=== PATIENT | female | born 1970 | race Hispanic/Latino ===

== ENCOUNTER 2020-12-04 06:15 | Day surgery (SDC) | payer OTHER ==
[2020-12-04] MEDS ORDERED: Ringers Lactate 1,000 ML IV ONE (07:02)
[2020-12-04] MEDS ORDERED: EPINEPHRINE/PF 1 MG/ML AMP ONE (07:39)
[2020-12-04] MEDS ORDERED: LIDOCAINE 1% MPF 5 ML VIAL ONE (07:42)
[2020-12-04] MEDS ORDERED: propofoL 200 MG/20 ML VIAL IV ONE ×2 (07:42→07:57)
--- NOTE | 2020-12-04 07:50 | ENDO RPT ---
[address], [address] EGD PROCEDURE REPORT EXAM DATE: 12/04/2020 PATIENT NAME: Chen Otero MR#: [id number] BIRTHDATE: 1970 ATTENDING: Rui Cruz DR STATUS: outpatient [employer]ILY TE[employer]ER: Neha VAZQUEZ and Yoon Carson RN INDICATIONS: The patient is a 50 yr old Female here for an EGD due to mid epigastric abdominal pain PROCEDURE PERFORMED: EGD with biopsy for H. pylori MEDICATIONS: Per Anesthesia. TOPICAL ANESTHETIC: none CONSENT: The patient understands the risks and benefits of the procedure and understands that these risks include, but are not limited to: sedation, allergic reaction, infection, perforation and/or bleeding. Alternative means of evaluation and treatment include, among others: physical exam, x-rays, and/or surgical intervention. The patient elects to proceed with this endoscopic procedure. DESCRIPTION OF PROCEDURE: During intra-op preparation period all mechanical medical equipment was checked for proper function. Hand hygiene and appropriate measures for infection prevention was taken. Procedure, possible complications, and alternatives including but not limited to the possibility of bleeding, perforation, tear, infection, sepsis, need for surgery, need for blood transfusion, and anesthesia related complications were explained to the patient. After the risks, benefits and alternatives of the procedure were thoroughly explained, Informed consent was verified, confirmed and timeout was successfully executed by the treatment team. The patient was placed in the left lateral position. The patient was anesthetized with topical anesthesia. Through the anesthetized oropharyngeal area, the scope was passed without any difficulty. The EG-[id number] ([id number]) endoscope was introduced through the mouth and advanced to the second portion of the duodenum. Retroflexed views revealed no abnormalities. The gastroscope was then slowly withdrawn and removed. Multiple erosions were found in the body and the antrum of the stomach. A biopsy for H. pylori was taken. Moderate gastritis was found in the body and the antrum of the stomach. A biopsy for H. pylori was taken. The esophagus and gastroesophageal junction were completely normal in appearance. Normal GE junction was noted. With standard forceps, a biopsy was obtained and sent to pathology. ADVERSE EVENTS: There were no complications. IMPRESSIONS: 1. Multiple erosions were found in the body and the antrum of the stomach 2. Moderate gastritis was found in the body and the antrum of the stomach 3. Normal duodenum RECOMMENDATIONS: 1. acid suppression therapy 2. await biopsy results 3. avoid NSAIDS 4. follow-up: office 2 week(s) 5. follow-up of helicobacter pylori status, treat if indicated REPEAT EXAM: Rui Cruz DR eSigned: Rui Cruz DR 12/04/2020 7:49 AM cc: CPT CODES: ICD9 CODES: PATIENT NAME: Chen Otero MR#: [id number]
[2020-12-04 10:23] VITALS: BP 121/60; TEMP 97; O2SAT 100
== END 2020-12-04 08:38 | disposition home or self-care (01) ==
LOC: OR 06:15
PROVIDERS: ATTEND Surgery
PROC: 0DB78ZX Excision of Stomach, Pylorus, Via Natural or Artificial Opening Endoscopic, Diagnostic (ICD-10-PCS; 2020-12-04)
PROC: 0DB68ZX Excision of Stomach, Via Natural or Artificial Opening Endoscopic, Diagnostic (ICD-10-PCS; 2020-12-04)
PROC: 0DB48ZX Excision of Esophagogastric Junction, Via Natural or Artificial Opening Endoscopic, Diagnostic (ICD-10-PCS; 2020-12-04)
PROC: 0DB98ZX Excision of Duodenum, Via Natural or Artificial Opening Endoscopic, Diagnostic (ICD-10-PCS; principal; 2020-12-04 07:30)
DX: A04.8 Other specified bacterial intestinal infections (principal); K29.80 Duodenitis without bleeding; K29.50 Unspecified chronic gastritis without bleeding; K21.00 Gastro-esophageal reflux disease with esophagitis, without bleeding; I51.89 Other ill-defined heart diseases
CPT/HCPCS: 88312; 88305; 43239; J2704; J7120; J0171